=== PATIENT | male | born 1970 | race Caucasian/White ===

== ENCOUNTER 2020-04-10 16:38 | Emergency (ER) | payer BC ==
[2020-04-10] MEDS ORDERED: Dexamethasone 4 MG/ML SDV IVPUSH ONE (17:30)
[2020-04-10] MEDS ORDERED: cefTRIAXone 2 GM in Sodium Chloride 0.9% 100 ML IV ONE (17:30)
[2020-04-10] MEDS ORDERED: Azithromycin 250 MG Tab PO ONE (17:30)
[2020-04-10] MEDS ORDERED: Lidocaine 2% Viscous Solution 15 ML Cup PO ONE (17:31)
[2020-04-10] MEDS: Sodium Chloride 0.9% 10 ML Syringe FLUSH PRN ×2 (17:35→18:00)
--- NOTE | 2020-04-10 17:50 | EDM.PDOC ---
Scribed by Clare Nicole 04/10/20 7670 for Dhaval Bonilla MD ED HPI GENERAL MEDICAL PROBLEM - General Chief Complaint: ENT Problem Stated Complaint: TONSILS SWELLED UP Time Seen by Provider: 04/10/20 17:08 Source of Information: Reports: Patient, RN, RN Notes Reviewed History Limitations: Reports: No Limitations - History of Present Illness INITIAL COMMENTS - FREE TEXT/NARRATIVE: Patient presents to ED by POV stating tonsils swelled up which has been going on for 2 days, worse today. He rates the pain 05/14, took 800 mg Advil at 1500. He states having trouble swallowing. He states he had this about 5 years ago. It states usually goes away but not today Onset Date: 04/08/20 Duration: Getting Worse Location: Reports: Other (tonsils) Quality: Reports: Ache Severity: Moderate Improves with: Reports: None Worsens with: Reports: None Associated Symptoms: Reports: No Other Symptoms Throat Pain Score (Numeric/FACES): 9 - Related Data Allergies Allergy/AdvReac Type Severity Reaction Status Date / Time No Known Allergies Allergy Verified 04/10/20 17:13 Home Meds: Home Meds Ibuprofen [Advil] 800 mg PO ASDIRECTED PRN 04/10/20 [History] gemfibroziL [Gemfibrozil] 600 mg PO BID 04/10/20 [History] metFORMIN [Glucophage XR] 1,000 mg PO BID 04/10/20 [History] Past Medical History HEENT History: Reports: Impaired Vision (Wears glasses), Other (See Below) (Peritonsilar abscess) Cardiovascular History: Reports: High Cholesterol Endocrine/Metabolic History: Reports: Diabetes, Type II Social & Family History - Family History Family Medical History: Noncontributory - Living Situation & Occupation Occupation: Employed ED ROS ENT - Review of Systems Review Of Systems: Comprehensive ROS is negative, except as noted in HPI. ED EXAM, ENT - Physical Exam Exam: See Below Exam Limited By: No Limitations General Appearance: Alert, WD/WN, No Apparent Distress Nose: Normal Inspection, Normal Mucousa, No Blood Mouth/Throat: Normal Gums, Normal Lips, Normal Teeth, Pharyngeal Erythema, Throat Pain, Tonsillar Erythema, Tonsillar Swelling (Small/early left peritonsilar abscess). No: Hoarse Voice, Muffled Voice, Throat Swelling, Tongue Swelling, Tonsillar Exudates, Trismus, Uvular Deviation, Uvular Edema Head: Atraumatic, Normocephalic Neck: Full Range of Motion, Lymphadenopathy (L), Lymphadenopathy (R) Respiratory/Chest: No Respiratory Distress, Lungs Clear, Normal Breath Sounds, No Accessory Muscle Use, Chest Non-Tender Cardiovascular: Regular Rate, Rhythm, Tachycardia Neurological: Alert, Oriented, No Motor/Sensory Deficits Psychiatric: Normal Affect, Normal Mood Skin: Warm, Dry, Intact, Normal Color Course - Vital Signs Last Recorded V/S: Last Vital Signs Temp 97.8 F 04/10/20 17:10 Pulse 112 H 04/10/20 17:10 Resp 18 04/10/20 17:10 BP 135/81 04/10/20 17:10 Pulse Ox 98 04/10/20 17:10 - Orders/Labs/Meds Orders: Active Orders 24 hr Category Date Time Status Peripheral IV Care [RC] . DIRECTED Care 04/10/20 17:30 Active CULTURE STREP A CONFIRMATION [] Stat Lab 04/10/20 17:26 Results STREP SCRN A RAPID W CULT CONF [] Stat Lab 04/10/20 17:26 Results Sodium Chloride 0.9% [Saline Flush] Med 04/10/20 17:30 Active 10 ml FLUSH ASDIRECTED PRN cefTRIAXone [Rocephin] 2 gm Med 04/10/20 17:30 Active Sodium Chloride 0.9% [Normal Saline] 100 ml IV ONETIME Peripheral IV Insertion Adult [OM.PC] Stat Oth 04/10/20 17:29 Ordered Medication Orders Ceftriaxone Sodium 2 gm/ (Sodium Chloride) 100 mls @ 200 mls/hr IV ONETIME ONE Stop: 04/10/20 17:59 Sodium Chloride (Saline Flush) 10 ml FLUSH ASDIRECTED PRN PRN Reason: Keep Vein Open Last Admin: 04/10/20 17:35 Dose: 10 ml Documented by: OZZIE Labs: Rapid Strep: negative Meds: Medications Generic Name Dose Route Start Last Admin Trade Name Freq PRN Reason Stop Dose Admin Ceftriaxone Sodium 2 gm/ 100 mls @ 200 mls/hr 04/10/20 17:30 Sodium Chloride IV 04/10/20 17:59 ONETIME ONE Sodium Chloride 10 ml 04/10/20 17:30 04/10/20 17:35 Saline Flush FLUSH 10 ml ASDIRECTED PRN Administration Keep Vein Open Discontinued Medications Generic Name Dose Route Start Last Admin Trade Name Sagarq PRN Reason Stop Dose Admin Azithromycin 500 mg 04/10/20 17:30 Zithromax PO 04/10/20 17:31 ONETIME ONE Dexamethasone 20 mg 04/10/20 17:30 Dexamethasone IVPUSH 04/10/20 17:31 ONETIME ONE Lidocaine HCl 15 ml 04/10/20 17:31 Xylocaine 2% Viscous PO 04/10/20 17:32 ONETIME ONE Rapid strep: Negative. Departure - Departure Time of Disposition: 18:30 Disposition: Home, Self-Care 01 Condition: Good Clinical Impression: Tonsillitis, Peritonsillar abscess - Discharge Information *PRESCRIPTION DRUG MONITORING PROGRAM REVIEWED*: Not Applicable *COPY OF PRESCRIPTION DRUG MONITORING REPORT IN PATIENT GODWIN: Not Applicable Instructions: Peritonsillar Abscess, Tonsillitis, [id number] Forms: ED Department Discharge Additional Instructions: Rx: Zithromax 500mg Saltwater gargles until sore throat improves. Follow up with your primary doctor to discuss a referral to an Ear/Nose/Throat specialist due to recurrent peritonsillar abscesses. Sepsis Event Note (ED) - Focused Exam Vital Signs: Vital Signs Temp Pulse Resp BP Pulse Ox 04/10/20 17:10 97.8 F 112 H 18 135/81 98 - My Orders Last 24 Hours: My Active Orders 04/10/20 17:26 CULTURE STREP A CONFIRMATION [RM] Stat STREP SCRN A RAPID W CULT CONF [RM] Stat 04/10/20 17:29 Peripheral IV Insertion Adult [OM.PC] Stat 04/10/20 17:30 Peripheral IV Care [RC] . DIRECTED Sodium Chloride 0.9% [Saline Flush] 10 ml FLUSH ASDIRECTED PRN cefTRIAXone [Rocephin] 2 gm Sodium Chloride 0.9% [Normal Saline] 100 ml IV ONETIME - Assessment/Plan Last 24 Hours: My Active Orders 04/10/20 17:26 CULTURE STREP A CONFIRMATION [RM] Stat STREP SCRN A RAPID W CULT CONF [RM] Stat 04/10/20 17:29 Peripheral IV Insertion Adult [OM.PC] Stat 04/10/20 17:30 Peripheral IV Care [RC] . DIRECTED Sodium Chloride 0.9% [Saline Flush] 10 ml FLUSH ASDIRECTED PRN cefTRIAXone [Rocephin] 2 gm Sodium Chloride 0.9% [Normal Saline] 100 ml IV ONETIME I have read and agree with the documentation that has been completed regarding this visit. By signing this record, I attest that the documentation was completed in my physical presence and is an accurate record of the encounter.
[2020-04-10] MEDS ORDERED: GI Cocktail Oral Solution 30 ML PO ONE (17:55)
== END 2020-04-10 18:36 | disposition home or self-care (01) ==
LOC: DL.ED 16:38
DX: J03.90 Acute tonsillitis, unspecified (principal); J36 Peritonsillar abscess; E11.9 Type 2 diabetes mellitus without complications; E78.00 Pure hypercholesterolemia, unspecified; Z79.84 Long term (current) use of oral hypoglycemic drugs; Z79.899 Other long term (current) drug therapy
CPT/HCPCS: 87081; 87430; 96374; 96375; 99283-25; A9270-GY; J0696; J1100; J7050